=== PATIENT | female | born 1935 | race Caucasian/White ===

== ENCOUNTER 2019-01-25 13:33 | Inpatient (IN) | payer MEDICARE, OTHER ==
[~2019-01-25] VITALS: Ht 170.2 cm; Wt 72.6 kg
[~2019-01-25 13:33] MED LIST: DIGOXIN125 MCG PO; LEVAQUIN250 MG PO; LISINOPRIL10 MG PO; METOPROLOL SUCC50 MG PO; METOPROLOL TART50 MG PO; WARFARIN SODIU2.5 MG PO
--- OUTSIDE RECORDS SUMMARY | 2019-01-25 13:38 | XMS REPORT ---
Author Author [facility] Address Unknown Phone Unavailable Care Team Providers Care Cloth Shrinking Tester Name Role Phone Unavailable Unavailable Payers Payer Name Policy Type Policy Number Effective Date Expiration Date Problems This patient has no known problems. Allergies, Adverse Reactions, Alerts Allergy Name Allergy Type Status Severity Reaction(s) Onset Date Inactive Date Treating Clinician Comments latex DA Active U 2014-11-07 00:00:00 Penicillins DA Active U 2012-01-02 00:00:00 morphine DA Active U 2012-01-02 00:00:00 codeine DA Active U 2012-01-02 00:00:00 etodolac DA Active MO 2012-01-02 00:00:00 Medications This patient has no known medications. Results Test Description Test Time Test Comments Text Results Atomic Results Result Comments - XR RIBS UNI W/CXR 3+V RT 2019-01-22 22:14:00 FAX: Mary Mohan [phone] [place]: St: [facility] FAX: Belkys Martinez MD [phone] Name: ROBERTA NUNEZ [facility] : 1935 Age/S: 83/F [address] Unit #: [id number] Loc: MARIEL Desai [address] Phys: Belkys Martinez MD Acct: [id number] Dis Date: Status: REG ER PHONE #: [phone] Exam Date: 01/22/20192211 FAX #: [phone] Reason: pain, trauma EXAMS: CPT CODE: [id number] XR RIBS UNI W/CXR 3+V RT 05200 REASON FOR EXAM: pain, trauma EXAM ORDER DATE: 01/22/2019 8:14 PM Ordering M.DCurtis: Belkys Martinez MD PROCEDURE: - XR RIBS UNI W/CXR 3+V RT FINDINGS: 5 views of the frontal view of the chest and right ribs were obtained. The osseous structures are unremarkable in size and shape. No evidence of pneumothorax or hemothorax. No evidence of displaced rib fracture. IMPRESSION: Unremarkable right ribs at 2214 Reported and signed by: Isma Murphy M.D. CC: Mary Garrison MD; Belkys Martinez MD Technologist: JENNY ALMANZA RT; Cruz Castanon RT(R Trnscrd Date/Time/By: 01/22/2019 (2213) : By: JoseVTL Orig Print D/T: S: 01/22/2019 (5811) PAGE 1 Signed Report PROTHROMBIN TIME 2019-01-22 21:05:00 PROTHROMBIN TIME PATIENT (test code=PTP) 19.6 seconds 9.0-14.0 INTERNATIONAL NORMAL RATIO (test code=INR) 1.7 0.8-1.2 The therapeutic range for oral anticoagulant therapy formost indications is an international normalized ratio (INR)of between 2.0 and 3.0. The recommended therapeutic INRrange for various clinical situations is listed below: Clinical Situation INR range Pulmonary e mbolism treatment (2.0-3.0)Venous thrombosis treatmentVenous thrombosis prophylaxis (high risk surgery)Prevention of systemic embolism from: Acute myocardial infarction Valvular heart disease Atrial fibrillation Mechanical prosthetic heart valves (2.5-3.5) IS PATIENT ON ANTICOAGULANTS? YLIST ANTICOAGULANTS COUMADINTHROMBOPLASTIN TIME [id number] 21:05:00* Test Item Value Reference Range Comments THROMBOPLASTIN TIME PARTIAL (test code=PTT) 32.9 seconds 25.0-36.5 IS PATIENT ON ANTICOAGULANTS? YLIST ANTICOAGULANTS COUMADINCOMPREHENSIVE METABOLIC [id number] 20:43:00* Test Item Value Reference Range Comments SODIUM (test code=NA) 137 mmol/L 136-145 POTASSIUM (test code=K) 3.7 mmol/L 3.5-5.1 CHLORIDE (test code=CL) 103.0 mmol/L 98-107 CARBON DIOXIDE (test code=CO2) 25.0 mmol/L 21-32 ANION GAP (test code=GAP) 12.7 10-20 GLUCOSE (test code=GLU) 128 mg/dL 74-106 BLOOD UREA NITROGEN (test code=BUN) 14 mg/dL 7-18 GLOMERULAR FILTRATION RATE (test code=GFR) > 60 mL/min >=60 Estimated GFR by using Modified MDRD formula.Chronic kidney disease is defined as either kidney damageor GFR <60 mL/min/1.73 m2 for >3 months. CREATININE (test code=CREAT) 0.70 mg/dL 0.55-1.02 Note change in reference range due to change in reagent. BUN/CREATININE RATIO (test code=BUN/CREA) 20.0 10-20 TOTAL PROTEIN (test code=PROT) 8.0 gram/dL 6.4-8.2 ALBUMIN (test code=ALB) 4.0 g/dL 3.4-5.0 GLOBULIN (test code=GLOB) 4.0 gram/dL 2.7-4.2 ALBUMIN/GLOBULIN RATIO (test code=A/G) 1.0 0.75-1.50 CALCIUM (test code=CA) 9.2 mg/dL 8.5-10.1 BILIRUBIN TOTAL (test code=BILT) 0.50 mg/dL 0.0-1.0 SGOT/AST (test code=AST) 30 IUnit/L 15-37 SGPT/ALT (test code=ALT) 31 IUnit/L 12-78 ALKALINE PHOSPHATASE TOTAL (test code=ALKP) 68 IUnit/L 45-117 Note change in reference range due to change in reagent. COMPREHENSIVE METABOLIC [id number] 20:42:00* Test Item Value Reference Range Comments SODIUM (test code=NA) 137 mmol/L 136-145 POTASSIUM (test code=K) 3.7 mmol/L 3.5-5.1 CHLORIDE (test code=CL) 103.0 mmol/L 98-107 CARBON DIOXIDE (test code=CO2) mmol/L 21-32 ANION GAP (test code=GAP) 10-20 GLUCOSE (test code=GLU) mg/dL 74-106 BLOOD UREA NITROGEN (test code=BUN) mg/dL 7-18 GLOMERULAR FILTRATION RATE (test code=GFR) mL/min >=60 CREATININE (test code=CREAT) mg/dL 0.55-1.02 BUN/CREATININE RATIO (test code=BUN/CREA) 10-20 TOTAL PROTEIN (test code=PROT) gram/dL 6.4-8.2 ALBUMIN (test code=ALB) g/dL 3.4-5.0 GLOBULIN (test code=GLOB) gram/dL 2.7-4.2 ALBUMIN/GLOBULIN RATIO (test code=A/G) 0.75-1.50 CALCIUM (test code=CA) mg/dL 8.5-10.1 BILIRUBIN TOTAL (test code=BILT) mg/dL 0.0-1.0 SGOT/AST (test code=AST) IUnit/L 15-37 SGPT/ALT (test code=ALT) IUnit/L 12-78 ALKALINE PHOSPHATASE TOTAL (test code=ALKP) IUnit/L 45-117 CBC W/AUTO [id number] 20:40:00* Test Item Value Reference Range Comments WHITE BLOOD CELL (test code=WBC) 15.7 K/mm3 4.5-12.5 RED BLOOD CELL (test code=RBC) 4.95 mill/mm3 3.7-5.2 HEMOGLOBIN (test code=HGB) 15.3 gram/dL 11.5-15.5 HEMATOCRIT (test code=HCT) 46.8 % 36.0-46.0 MEAN CELL VOLUME (test code=MCV) 94.5 fL 80-98 MEAN CELL HGB (test code=MCH) 30.9 picogram 27.0-33.0 MEAN CELL HGB CONCETRATION (test code=MCHC) 32.7 gram/dL 33.0-36.0 RED CELL DISTRIBUTION WIDTH (test code=RDW) 12.3 % 11.6-16.2 RED CELL DISTRIBUTION WIDTH SD (test code=RDW-SD) 42.5 fL 37.0-51.0 PLATELET COUNT (test code=PLT) 275 K/mm3 150-450 MEAN PLATELET VOLUME (test code=MPV) 9.5 fL 6.7-11.0 NEUTROPHIL % (test code=NT%) 78.4 % 39.0-69.0 IMMATURE GRANULOCYTE % (test code=IG%) 1.6 % 0.0-5.0 LYMPHOCYTE % (test code=LY%) 13.8 % 25.0-55.0 MONOCYTE % (test code=MO%) 5.4 % 0.0-10.0 EOSINOPHIL % (test code=EO%) 0.2 % 0.0-5.0 BASOPHIL % (test code=BA%) 0.6 % 0.0-1.0 NUCLEATED RBC % (test code=NRBC%) 0.0 % 0-0 NEUTROPHIL # (test code=NT#) 12.32 K/mm3 1.8-7.7 IMMATURE GRANULOCYTE # (test code=IG#) 0.25 x10 3/uL 0-0.03 LYMPHOCYTE # (test code=LY#) 2.17 K/mm3 1.0-5.0 MONOCYTE # (test code=MO#) 0.84 K/mm3 0-0.8 EOSINOPHIL # (test code=EO#) 0.03 K/mm3 0.0-0.5 BASOPHIL # (test code=BA#) 0.09 K/mm3 0.0-0.2 NUCLEATED RBC # (test code=NRBC#) 0.00 K/mm3 0.0-0.1 MANUAL DIFF REQUIRED (test code=MDIFF) NO CBC W/AUTO [id number] 20:31:00* Test Item Value Reference Range Comments WHITE BLOOD CELL (test code=WBC) K/mm3 4.5-12.5 RED BLOOD CELL (test code=RBC) mill/mm3 3.7-5.2 HEMOGLOBIN (test code=HGB) 15.3 gram/dL 11.5-15.5 HEMATOCRIT (test code=HCT) % 36.0-46.0 MEAN CELL VOLUME (test code=MCV) fL 80-98 MEAN CELL HGB (test code=MCH) picogram 27.0-33.0 MEAN CELL HGB CONCETRATION (test code=MCHC) gram/dL 33.0-36.0 RED CELL DISTRIBUTION WIDTH (test code=RDW) % 11.6-16.2 RED CELL DISTRIBUTION WIDTH SD (test code=RDW-SD) fL 37.0-51.0 PLATELET COUNT (test code=PLT) K/mm3 150-450 MEAN PLATELET VOLUME (test code=MPV) fL 6.7-11.0 NEUTROPHIL % (test code=NT%) % 39.0-69.0 IMMATURE GRANULOCYTE % (test code=IG%) % 0.0-5.0 LYMPHOCYTE % (test code=LY%) % 25.0-55.0 MONOCYTE % (test code=MO%) % 0.0-10.0 EOSINOPHIL % (test code=EO%) % 0.0-5.0 BASOPHIL % (test code=BA%) % 0.0-1.0 NEUTROPHIL # (test code=NT#) K/mm3 1.8-7.7 LYMPHOCYTE # (test code=LY#) K/mm3 1.0-5.0 MONOCYTE # (test code=MO#) K/mm3 0-0.8 EOSINOPHIL # (test code=EO#) K/mm3 0.0-0.5 BASOPHIL # (test code=BA#) K/mm3 0.0-0.2
[2019-01-25 14:36] LABS: ALANINE AMINOTRANSFERASE 19 IU/L (0-55); ALBUMIN 3.5 g/dL (3.5-5.0); ALBUMIN/GLOBULIN RATIO 0.9 (0.8-2.0); ALKALINE PHOSPHATASE 59 IU/L (40-150); ANION GAP 15.6 mmol/L (8-16); BLOOD UREA NITROGEN 20 mg/dL (7-26); BUN/CREATININE RATIO 25 (6-25); CALCIUM 9.9 mg/dL (8.4-10.2); CARBON DIOXIDE 22 mmol/L (22-29); CHLORIDE 103 mmol/L (98-107); EST GLOMERULAR FILTRATION RATE > 60 ML/MIN (60-); GLUCOSE 154 mg/dL (74-118); POTASSIUM 3.6 mmol/L (3.5-5.1); SODIUM 137 mmol/L (136-145)
[2019-01-25 14:37] LABS: BASOPHILS # (AUTO) 0.1 (0.0-0.1); BASOPHILS % 0.7 % (0.0-1.0); EOSINOPHILS # (AUTO) 0.1 (0.0-0.4); EOSINOPHILS % 0.8 % (0.0-6.0); HEMOGLOBIN 15.2 g/dL (12.0-16.0); LYMPHOCYTES # (AUTO) 2.9 (1.0-3.2); LYMPHOCYTES % 22.2 % (18.0-39.1); MEAN CORPUSCULAR HEMOGLOBIN 31.5 pg (28-32); MEAN CORPUSCULAR HGB CONC 34.5 g/dL (31-35); MEAN CORPUSCULAR VOLUME 91.1 fL (81-99); MONOCYTES # (AUTO) 1.1 (0.2-0.8); MONOCYTES % 8.2 % (4.4-11.3); NEUTROPHILS # (AUTO) 8.7 (2.1-6.9); NEUTROPHILS % 67.2 % (38.7-80.0); PLATELET COUNT 273 x10e3/uL (140-360); RED BLOOD COUNT 4.83 x10e6/uL (3.6-5.1); RED CELL DISTRIBUTION WIDTH 12.4 % (11.7-14.4)
--- NOTE | 2019-01-25 14:44 | NUR ---
SPOUSE/FAMILY UNSURE OF PT'S HOME MEDS
[2019-01-25] MEDS ORDERED: LACTULOSE SYRUP 20 GM/30 ML UDC PO PRN (15:00)
[2019-01-25] MEDS ORDERED: ONDANSETRON HCL INJ 2MG/ML 2ML 2 MG/ML VIAL IV PRN (15:00)
[2019-01-25] MEDS ORDERED: ENALAPRILAT IV INJ 1.25 MG/ML VIAL IV PRN (15:00)
--- NOTE | 2019-01-25 15:04 | NUR ---
Patient arrived from ER via stretcher. Alert to self only, family at the bedside. Patient was a total slide transfer to the bed with staff assistance. She guards right side and attempted to hit staff as she was being transferred. Spouse attempted to redirect. Patient was safely transferred and patient re-oriented to new surrounding. Diaper changed and patient repositioned. Bed in lowest position, locked and call irizarry within reach.
--- NOTE | 2019-01-25 15:21 | Diagnostic Imaging Report ---
Exam: Right RIBS with chest radiograph History: Fall last week, rib fracture Comparison: None. Findings: The lungs are well-inflated and without focal consolidation. Blunting of the right lateral costophrenic sulcus with adjacent linear opacity. Biapical pleural-parenchymal scar. No pneumothorax. Tortuous thoracic aorta with atherosclerotic calcification. Left subclavian approach implantable cardiac device body projects over the left axilla. Chest wall projects over the right ventricle. Acute, mildly displaced fracture of the posterior right eighth and probably ninth ribs. Acute, mildly displaced fractures of the lateral fifth through 10th ribs. Impression: Acute mildly displaced fractures of the right lateral fifth through 10th ribs with a segmental eighth rib fracture as above. Basal-lateral right lower thoracic opacity likely reflects a combination of small hemothorax and adjacent atelectasis. No pneumothorax. Signed by: Dr. Yg Juarez M.D. on 01/25/2019 3:18 PM
[2019-01-25 15:30] VITALS: BP 170/88
[2019-01-25 16:25] VITALS: BP 179/94
[2019-01-25] MEDS: CLONIDINE HCL 0.1 MG TAB PO PRN (17:06)
[2019-01-25] MEDS: FAMOTIDINE 20 MG TAB PO SCH (17:06)
--- NOTE | 2019-01-25 17:45 | NUR ---
Dr. Garrison rounding per MD INR can be checked tomorrow.
[2019-01-25] MEDS: METOPROLOL TARTRATE 50 MG TAB PO SCH (18:39)
--- NOTE | 2019-01-25 19:12 | NUR ---
Report received and walking rounds/bedside complete. Pt resting in bed and in no apparent distress. Family at bedside. Pt on room air and no tele. Pt has purewick cath to suction in place. Pt spouse to stay overnight. All safety measures ensured, bed alarm on, and pt call irizarry near.
[2019-01-25 20:00] VITALS: BP 164/73
[2019-01-25] MEDS: ACETAMINOPHEN 325 MG TAB PO PRN (20:52)
[2019-01-26] VITALS: BP 160/92
[2019-01-26 00:18] LABS: BILIRUBIN,URINE NEGATIVE (NEGATIVE); CLARITY,URINE HAZY (CLEAR); COLOR,URINE YELLOW (YELLOW); KETONES,URINE 1+ (NEGATIVE); LEUKOCYTE ESTERASE ,URINE TRACE (NEGATIVE); NITRITE,URINE NEGATIVE (NEGATIVE); PROTEIN,URINE DIPSTICK 1+ (NEGATIVE); URINE UROBILINOGEN 0.2 mg/dL (0.2 - 1)
[2019-01-26 00:19] LABS: BACTERIA,URINE MANY /HPF; EPITHELIAL CELLS,URINE FEW /LPF; MUCUS,URINE FEW (RARE); TRANSITIONAL EPI CELLS,URINE FEW; WBC,URINE (MAN) >50 /HPF (0-5)
--- NOTE | 2019-01-26 00:25 | Consultation ---
DATE OF CONSULTATION: 01/25/2019 Cardiology Consultation REASON FOR CONSULTATION: Atrial fibrillation, fall and fractured ribs. HISTORY OF PRESENT ILLNESS: This delightful 83-year-old lady, who was known with atrial fibrillation, prior TIA, Alzheimer's, and hypertension. The patient totally taking care of by family. She has excellent family support. The patient sustained a fall last Friday. She went to the ER. X-ray showed fractured ribs. Since that time, the patient really is obtunded, worsening condition, unable to move or to do any activity. Today, her condition worsened, so she was brought by her to the emergency room and admitted for further management. The patient's main problem is her atrial fibrillation, but more importantly, Alzheimer. She is very forgetful. Her is providing excellent 24-hour care. Unfortunately with that fall and fractures and painful right chest, the patient is unable to do any activity. She started deteriorating and her was very worried. He brought her to the emergency room. HOME MEDICATIONS: Metoprolol 50 mg p.o. twice a day, warfarin 2 mg a day, and Tylenol p.r.n. ALLERGIES: ZOCOR, CAUSING MUSCLE ACHE; PENICILLIN, RASH; MORPHINE, CONFUSION; CODEINE, CONFUSION; ALL STATINS CAUSING MUSCLE ACHES. PAST MEDICAL HISTORY: 1. Mild coronary artery disease documented by cardiac cath many years ago. 2. Atrial fibrillation. 3. Pacemaker on November 25, 2011. 4. Right greater saphenous vein ablation in 2014. 5. Left carotid bruit. 6. TIA. 7. Hypercholesteremia. 8. Elevated fasting blood sugar. 9. Fever. 10. Dementia. 11. Past history of peptic ulcer disease. 12. Back surgery. 13. Cholecystectomy. 14. Kidney surgery. 15. Partial hysterectomy. FAMILY HISTORY: Mother at age 72 with myocardial infarction. Father at age 76 with CVA. Few of her siblings with CVA or with kidney problem and coronary artery disease. SOCIAL HISTORY: She is . She is a nonsmoker. She is nonalcohol drinker. She has excellent family support at home. REVIEW OF SYSTEMS: GENERAL: The patient is unable to move, failure to thrive for the last few days. HEENT: Unremarkable. PULMONARY AND CARDIAC: Easy fatigability and shortness of breath on exertion. GI: Poor appetite and debility. : Incontinence. MUSCULOSKELETAL: Severe right chest wall pain. NEUROLOGIC: The patient is very forgetful. PHYSICAL EXAMINATION: GENERAL: Thin, told lady with height of 5 feet 9 inches, weight of 159 pounds. VITAL SIGNS: Blood pressure 170/80, heart rate of 110 per minute, irregularly irregular rate of atrial fibrillation, respiratory rate of 20. HEENT: Pupils are equal and reactive. NECK: No elevation of jugular venous pulsation. CHEST: Very tender chest wall. Decreased lung expansion. HEART: Irregularly regular rate of atrial fibrillation. Pacemaker is noted in place. Normal first and second heart sounds. A soft ejection systolic murmur. ABDOMEN: Soft. EXTREMITIES: No cyanosis. No clubbing. NEUROLOGIC: The patient is very forgetful, but she is able to move her extremities. IMPRESSION AND PLAN: 1. Alzheimer's. 2. Fall and right rib fractures. 3. Atrial fibrillation. 4. Pacemaker. 5. Hypertension. 6. Hypercholesteremia. Cardiac montelongo recommendation to be, I would resume the patient's beta-mike. We will check her INR before resuming her anticoagulation. Supportive care to be done. Physical Therapy to evaluate. horse stud manager to help. Care was discussed and explained to the patient and her family. Their questions are answered. MD OBED Roe/JANETT /[id number]
[2019-01-26 04:00] VITALS: BP 132/99
--- NOTE | 2019-01-26 04:30 | NUR ---
Attempted to assist PCT with vitals and bed bath but pt became very agitated and combative. Pt yelled and repeatedly told us to " leave her alone and get out" Pt spouse assisted in calming pt down. Temp not obtained and bed bath refused. Left pt room so that pt could calm down.
[2019-01-26 06:02] LABS: INR 1.94; PROTHROMBIN TIME 22.8 seconds (11.9-14.5)
[2019-01-26 06:10] LABS: ALANINE AMINOTRANSFERASE 17 IU/L (0-55); ALBUMIN/GLOBULIN RATIO 0.8 (0.8-2.0); ALKALINE PHOSPHATASE 53 IU/L (40-150); ANION GAP 13.6 mmol/L (8-16); BLOOD UREA NITROGEN 20 mg/dL (7-26); BUN/CREATININE RATIO 29 (6-25); CALCIUM 9.4 mg/dL (8.4-10.2); CARBON DIOXIDE 25 mmol/L (22-29); CHLORIDE 100 mmol/L (98-107); CHOL/HDL RATIO 3.8 (3.0-3.6); CHOLESTEROL 169 MD/DL (0-199); CREATININE, SERUM 0.69 mg/dL (0.57-1.11); EST GLOMERULAR FILTRATION RATE > 60 ML/MIN (60-); GLUCOSE 110 mg/dL (74-118); HDL CHOLESTEROL 44 MG/DL (40-60); LDL CHOLESTEROL 103 MG/DL (60-130); POTASSIUM 3.6 mmol/L (3.5-5.1); SODIUM 135 mmol/L (136-145); TRIGLYCERIDES 108 MG/DL (0-149)
--- NOTE | 2019-01-26 06:10 | NUR ---
departmental secretary tried multiple times to reach consult with no success. Tried to reach Dr. Fountain for consult, no response and no voicemail available. Will inform day shift RN as well.
[2019-01-26 06:11] LABS: BASOPHILS # (AUTO) 0.1 (0.0-0.1); BASOPHILS % 0.8 % (0.0-1.0); EOSINOPHILS # (AUTO) 0.1 (0.0-0.4); EOSINOPHILS % 0.9 % (0.0-6.0); HEMATOCRIT 39.8 % (34.2-44.1); LYMPHOCYTES # (AUTO) 2.6 (1.0-3.2); LYMPHOCYTES % 24.8 % (18.0-39.1); MEAN CORPUSCULAR HEMOGLOBIN 31.8 pg (28-32); MEAN CORPUSCULAR HGB CONC 34.9 g/dL (31-35); MEAN CORPUSCULAR VOLUME 91.1 fL (81-99); MONOCYTES % 9.3 % (4.4-11.3); NEUTROPHILS # (AUTO) 6.7 (2.1-6.9); NEUTROPHILS % 63.5 % (38.7-80.0); PLATELET COUNT 247 x10e3/uL (140-360); RED BLOOD COUNT 4.37 x10e6/uL (3.6-5.1); RED CELL DISTRIBUTION WIDTH 12.2 % (11.7-14.4)
[2019-01-26 06:32] LABS: THYROID STIMULATING HORMONE 2.051 uIU/mL (0.350-4.940)
[2019-01-26 06:35] LABS: HEMOGLOBIN 13.9 g/dL (12.0-16.0)
[2019-01-26 07:00] VITALS: BP 133/94
--- NOTE | 2019-01-26 07:15 | NUR ---
Walking rounds/bedside report complete. Pt resting in bed and in no distress. All safety measures ensured.
[2019-01-26] MEDS: ACETAMINOPHEN 325 MG TAB PO PRN ×2 (07:30→12:51)
[2019-01-26] MEDS: FAMOTIDINE 20 MG TAB PO SCH ×2 (08:20→16:30)
[2019-01-26] MEDS: METOPROLOL TARTRATE 50 MG TAB PO SCH ×2 (08:20→16:31)
[2019-01-26] MEDS ORDERED: METOPROLOL TARTRATE 50 MG TAB PO SCH (09:00)
[2019-01-26] MEDS ORDERED: WARFARIN SOD 2.5 MG TAB PO SCH (09:00)
[2019-01-26] MEDS: CEFTRIAXONE SOD 2 GM/NS 100 ML 100 ML IV SCH (10:20)
--- NOTE | 2019-01-26 11:03 | NUR ---
SPOKE WITH SON WHO SIGNED IMM FILED IN CHART AND LEFT COPY FOR AT BEDSIDE WITH ANY QUESTIONS. ADVISED ABOUT DIFFERENT FACILITIES AROUND HIS NEIGHBORHOOD AND THE ONE THE DR RECOMMENDS. LET KNOW THE PT WILL NEED TO BE IN HOSPITAL FOR THE 3 MIDNIGHT RULE, HE STATES HE WILL DISCUSS WITH HIS DAD AND GET BACK TO ME WITH CHOICE FOR SNF.
[2019-01-26 11:30] VITALS: BP 147/89
[2019-01-26] MEDS ORDERED: ONDANSETRON HCL 4 MG ORAL DISINTEGRATING TAB PO PRN (12:15)
--- NOTE | 2019-01-26 15:08 | Diagnostic Imaging Report ---
Examination: Single AP view of the chest. COMPARISON: Rib radiographs 01/25/2019 INDICATION: Rib fractures DISCUSSION: Patient is rotated substantially to the left. Lungs are well-inflated. Small right pleural effusion. No new consolidation. Unchanged cardiomediastinal contour when accounting for differences in patient positioning. Tortuosity and atherosclerotic calcification of the thoracic aorta. Unchanged left subclavian implantable cardiac device. Multiple right-sided rib fractures are grossly unchanged and seen to better advantage on dedicated rib radiographs. IMPRESSION: Multiple right-sided rib fractures, grossly unchanged and seen to better advantage on comparison rib radiographs 01/25/2019. Trace right pleural effusion/hemothorax unchanged. Signed by: Dr. Yg Juarez M.D. on 01/26/2019 3:04 PM
[2019-01-26 15:35] VITALS: BP 139/87
--- NOTE | 2019-01-26 15:38 | History and Physical ---
HISTORY OF PRESENT ILLNESS: Ceci Hsu is an 83-year-old female with past medical history positive for dementia, chronic atrial fibrillation, hypertension. The patient had a fall at home. She has broken ribs. She had also right hemothorax. She was found to have UTI, came to the emergency room for admission. REVIEW OF SYSTEMS: The patient is extremely confused, she cannot give me any information. PAST MEDICAL HISTORY: Positive for hypertension, chronic atrial fibrillation, dementia. SOCIAL HISTORY: She does not smoke. She does not drink. She lives with her . PHYSICAL EXAMINATION: VITAL SIGNS: Blood pressure 132/99, temperature 95.7, heart rate is 110 per minute, respiratory rate is 20 per minute, oxygen saturation 93%. HEART: Showed irregularly irregular heart rate. Normal S1, S2 sound. LUNGS: Clear bilaterally. ABDOMEN: Soft. EXTREMITIES: Show no evidence of cyanosis, edema, or trauma. LABORATORY DATA: BMP; sodium 136, potassium 3.6, chloride 100, CO2 of 25, BUN 20, creatinine 0.69, glucose 110. CBC; white blood count 10.4, hemoglobin 13.9, hematocrit 39.8, platelet count 247,000. PT 22.8, INR 1.84. AST 20, ALT 17, total bilirubin 1.1, alkaline phosphatase 53. FINAL IMPRESSION: 1. Urinary tract infection. 2. Status post fall. 3. Right rib fractures. 4. Right hemothorax secondary to right rib fractures. 5. Chronic atrial fibrillation. 6. Hypertension. 7. Dementia. PLAN OF TREATMENT: We are going to continue Tylenol 650 mg q.4 hours as needed, Pepcid 20 mg twice a day, Benadryl 25 mg q.6 hours as needed, lactulose 20 g twice a day, metoprolol 50 mg twice a day, enalapril at 0.625 IV q.6 hours as needed for hypertension, Zofran 4 mg IV q.4 hours as needed, and clonidine 0.1 mg three times a day. If okay with Dr. Garrison, we are going to discontinue the Coumadin and start the aspirin because this patient has a very high risk of falling and high chance I think Coumadin is contraindicated in this case and baby aspirin should be a safer alternative. I discussed the case with the son at the bedside, he agrees with that. We are going to order physical and occupational therapy. The patient most likely will need to go to a halfway facility. The patient has difficulty walking, falling at home, she cannot follow any commands, so most likely she is going to need a halfway facility. We will consult Dr. Calderon for physical therapy also. MD GISELLE Gibson/JANETT /[id number]
[2019-01-26] MEDS: DICLOFENAC EPOLAMINE 1.3% PATCH TP SCH (16:31)
[2019-01-26] MEDS ORDERED: WARFARIN SOD 2 MG TAB PO SCH (17:00)
--- NOTE | 2019-01-26 17:43 | NUR ---
attempted to clean up patient, patient refuses to turn. attempted to reorient and re-educate the patient on the importance of turning and cleaning up after bowel movements. family verbalized understanding concerning patient care.
--- NOTE | 2019-01-26 19:05 | NUR ---
rounded with night court magistrate nurse, patient aware of change and in no distress. call irizarry within reach and bed in lowest position.
--- NOTE | 2019-01-26 19:10 | NUR ---
Report received and walking rounds/beside report complete. Pt resting in bed and in no apparent distress. Daughter in law at bedside. All safety measures ensured, bed alarm on, and pt call irizarry near. Pt is confused and can be easily agitated and combative.
[2019-01-26 20:00] VITALS: BP 169/89
[2019-01-26] MEDS: CLONIDINE HCL 0.1 MG TAB PO PRN (20:51)
--- NOTE | 2019-01-26 21:19 | Consultation ---
DATE OF CONSULTATION: 01/26/2019 Pulmonary Medicine Consult. REFERRING PHYSICIAN: Dr. Carney. REASON FOR REFERRAL: Rib fractures. HISTORY OF PRESENT ILLNESS: Ms. Hsu is a pleasant 83-year-old female with rib fractures. The patient with dementia. At baseline, she is not able to fully dress herself. She is able to fully feed herself. The patient forgetful, every day had episodes of agitation. The patient usually does not walk, but when she walks, she gets fits. However, when she gets angry, she will sometimes try to walk on her own. Reportedly yesterday, the patient tried to get up for whatever reason, and she had a fall. On chest x-ray, the patient with multiple right-sided rib fractures last Friday. The patient had worsening mental status and did not recover as usual her mentation, so she was elected for hospitalization. She is currently at the [facility] observation emery at this time. Urinalysis with greater than 50 white blood cells. PAST MEDICAL HISTORY: Mild coronary artery disease documented by heart catheterization many years ago, atrial fibrillation, pacemaker 2011, TIA, hypercholesterolemia, Alzheimer's dementia, peptic ulcer disease in the past, history of back surgery, cholecystectomy, kidney surgery, and partial hysterectomy. MEDICATIONS: Medication list reviewed per the chart record. Medicines at home include warfarin. ALLERGIES: PENICILLIN, PROPRANOLOL, SIMVASTATIN, CODEINE, MORPHINE, AND STATINS. SOCIAL HISTORY: No smoking. No drinking. No drugs. The patient formerly worked at [employer]. She has not been driving for three years. She lives at home with her , who is 85 years old and is her main unloader. FAMILY HISTORY: Noncontributory. REVIEW OF SYSTEMS: Cannot get review of systems, as the patient is agitated and confused. OBJECTIVE: VITAL SIGNS: Afebrile, vital signs noted and reviewed per the chart record. GENERAL: In no acute distress. Alert and slightly anxious, agitated, oppositional. She cannot notice the pain on a routine conversation. HEENT: Normocephalic and atraumatic. NECK: Supple. Throat midline. LUNGS: Bilateral air entry, limited evaluation due to the patient nonparticipation. CARDIOVASCULAR: S1, S2. No murmurs, rubs, or gallops. ABDOMINAL EXAM: Soft and nontender. EXTREMITIES: No clubbing. No cyanosis. There is no edema. INTEGUMENT: No rash. No purpura. For chest wall, we were unable to fully evaluate as the patient not allowing. LABORATORY DATA: 3.6 potassium, 20 BUN, 0.7 creatinine. 10 white count, 37 hematocrit. INR is 1.94. Chest x-ray with only small blunting right costophrenic angle. Rib series had shown the fractures. No full review of chest standard imaging was noted as only rib x-rays reviewed by this time. IMPRESSION AND PLAN: 1. Multiple rib fractures, traumatic. 2. Status post fall. 3. Warfarin coagulopathy. 4. Dementia, Alzheimer's type. 5. Delirium with agitation. 6. Atrial fibrillation. 7. History of pacemaker line. 8. History of transient ischemic attack. 9. Hyperlipidemia. 10. History of peptic ulcer disease. 11. Urinary tract infection, acute. Serial evaluation of neuropsychiatric status is recommended. Also, we will evaluate her respiratory status, but for now the patient is breathing well with little inhibition at least when she is left in bed still. Per nursing, she has a lot of pain on mobilization. The patient will have repeat CBC done. Furthermore, the patient will have repeat x-rays to assess for bleeding. We will drain any significant pleural effusion/hemothoraces. Continue treatment for her infection including urinary tract infection, which has been diagnosed. Thank you very much, Dr. Carney for allowing me a chance to participate in the care of Ms. Hsu. Do not hesitate to contact me if I can help in any way. MD NANCY Morris/JANETT /[id number]
--- NOTE | 2019-01-26 21:40 | NUR ---
Report given to GREGROIO Castro. Pt transferred to room 112.
--- NOTE | 2019-01-26 21:46 | NUR ---
Received the pt from obs via hospital bed.family member at bed side.[id number] monitor the pt.
[2019-01-26] MEDS: DIPHENHYDRAMINE HCL INJ 50 MG/ML VIAL IV PRN (22:59)
--- NOTE | 2019-01-26 23:53 | NUR ---
PATIENT REFUSED VITALS
[2019-01-27] VITALS (8 sets, daily range): BP systolic 0–173; BP diastolic 79–93
--- NOTE | 2019-01-27 04:41 | NUR ---
Patient was combative and screams during diaper changed. Refused vitals signs.
--- NOTE | 2019-01-27 06:07 | Diagnostic Imaging Report ---
Examination: Single AP view of the chest. COMPARISON: Portable chest 01/26/2018, rib series 01/25/2019 INDICATION: AMS, dementia, multiple rib fractures IMPRESSION: 1. Lines and Tubes: Stable single lead left upper chest cardiac device with the distal tip projecting in the right ventricle. 2. Lungs are well-inflated. Stable mild blunting of the right costophrenic angle, likely reflecting small pleural effusion or hemothorax secondary to multiple right-sided rib fractures. No new consolidation. 3. Stable enlargement of the cardiac silhouette. Mild central pulmonary venous congestion. 4. Multiple right-sided rib fractures, which are better visualized on dedicated rib series dated 01/25/2019 Signed by: Dr. Andrew Mcgee M.D. on 01/27/2019 6:04 AM
[2019-01-27 06:09] LABS: BASOPHILS # (AUTO) 0.1 (0.0-0.1); BASOPHILS % 0.9 % (0.0-1.0); EOSINOPHILS # (AUTO) 0.1 (0.0-0.4); EOSINOPHILS % 0.6 % (0.0-6.0); HEMATOCRIT 40.5 % (34.2-44.1); HEMOGLOBIN 13.8 g/dL (12.0-16.0); LYMPHOCYTES # (AUTO) 1.9 (1.0-3.2); LYMPHOCYTES % 18.5 % (18.0-39.1); MEAN CORPUSCULAR HEMOGLOBIN 31.5 pg (28-32); MEAN CORPUSCULAR HGB CONC 34.1 g/dL (31-35); MEAN CORPUSCULAR VOLUME 92.5 fL (81-99); MONOCYTES % 9.4 % (4.4-11.3); NEUTROPHILS # (AUTO) 7.1 (2.1-6.9); NEUTROPHILS % 69.9 % (38.7-80.0); PLATELET COUNT 265 x10e3/uL (140-360); RED BLOOD COUNT 4.38 x10e6/uL (3.6-5.1); RED CELL DISTRIBUTION WIDTH 12.2 % (11.7-14.4)
[2019-01-27 06:26] LABS: INR 1.94; PROTHROMBIN TIME 22.8 seconds (11.9-14.5)
[2019-01-27] MEDS: METOPROLOL TARTRATE 50 MG TAB PO SCH ×2 (09:18→18:20)
[2019-01-27] MEDS: ASPIRIN 81 MG ENTERIC COATED PO SCH (09:18)
[2019-01-27] MEDS: FAMOTIDINE 20 MG TAB PO SCH ×2 (09:18→18:20)
[2019-01-27] MEDS: CEFTRIAXONE SOD 2 GM/NS 100 ML 100 ML IV SCH (09:47)
[2019-01-27] MEDS: DICLOFENAC EPOLAMINE 1.3% PATCH TP SCH ×2 (12:03→18:20)
--- NOTE | 2019-01-27 12:49 | NUR ---
EDUCATED ABOUT IMM, SIGNED, FILED IN CHART, WITH COPY LEFT WITH FAMILY AT BEDSIDE.
[2019-01-27] MEDS ORDERED: ACETAMINOPHEN 325 MG SUPP PR PRN (14:15)
--- NOTE | 2019-01-27 14:19 | NUR ---
SPOKE WITH FAMILY ABOUT DIFFERENT HOSPICE OPTIONS SIGNED CHOICE FOR [facility] TO GET EDUCATION. WILL UPDATE WITH PROGRESS.
--- NOTE | 2019-01-27 14:53 | Progress Note ---
DATE: 01/27/2019 Pulmonary Medicine Progress Note SUBJECTIVE: Ms. Hsu was seen and examined at bedside. She continues to have further intermittent confusion. The patient withdrawals in periods of more conversation and lucidity. The other time, she is withdrawn and sometimes even agitated. The patient did not eat too much today. She has intermittent pain on mobilization. Chest x-ray showed benjamin instability grossly. REVIEW OF SYSTEMS: Limited as she is altered. OBJECTIVE: VITAL SIGNS: Afebrile, vital signs stable, reviewed and noted per the chart record. GENERAL: In no acute distress, alert and calm. HEENT: Normocephalic, atraumatic. NECK: Supple. Throat midline. LUNGS: Bilateral air entry, limited evaluation due to limited effort. CARDIOVASCULAR: S1 and S2. No murmurs, rubs, or gallops. ABDOMEN: Soft, nontender. EXTREMITIES: No clubbing, no cyanosis. There is no edema. INTEGUMENT: No rash or purpura. LABS: Hemoglobin was stable at 13.8. INR stable 1.94. IMPRESSION: 1. Status post fall, multiple right-sided rib fractures. 2. Small right-sided pleural effusion, stable. Likely small hemothorax. 3. Warfarin coagulopathy. 4. Urinary tract infection with confusion. PLAN: Continue antibiotics per others. The patient will have repeat monitoring of the INR tomorrow to ensure there is no toxicity range level. The patient will have continued pain management assistance for the rib fractures. If she has trouble mobilizing, we will consider adding lidocaine patch. The patient will have repeat chest x-ray tomorrow and if there is any increase in size of the effusion, we will get a CAT scan to see there is a sizable retained hemothorax. We will follow along closely. MD NANCY Morris/JANETT /[id number]
[2019-01-27] MEDS: ACETAMINOPHEN 325 MG TAB PO PRN (15:27)
--- NOTE | 2019-01-27 17:09 | Consultation ---
DATE OF CONSULTATION: 01/27/2019 I would like to thank Dr. Carney for asking to see Ms. Hsu in consultation. REASON FOR CONSULTATION: 1. Status post fall with right rib fractures. 2. Severely debilitated state. 3. Severe Alzheimer's dementia. 4. Atrial fibrillation. HISTORY: An 83-year-old female with history of atrial fibrillation, significant Alzheimer's dementia and hypertension, who got up and fell fracturing her right-sided ribs. The patient was sleepy and has been sleepy ever since, has had decline in function, was admitted to the hospital. and son are at the bedside. Now, she was notified of this consult. PAST MEDICAL HISTORY: Includes mild coronary artery disease. Atrial fibrillation, severe Alzheimer's dementia, TIA, hyperlipidemia, knee arthritis right worse than left, and history of peptic ulcer disease. PAST SURGICAL HISTORY: Partial hysterectomy, Achilles surgery, cholecystectomy, and back surgery. SOCIAL HISTORY: Lives with her spouse in a one-story home, could not take a shower and was severely demented. Habits, nonsmoker and nondrinker. FAMILY HISTORY: Positive for myocardial infarction in her mother. Father had CVA. She had few brothers and sisters with kidney disease and CVA. LABORATORY STUDIES: White cell count 12.9, hemoglobin 15.2, hematocrit 44.0, and platelets 273. Sodium is 137, potassium 3.6, BUN of 20, and creatinine 0.8. She had rib x-ray, which showed acute mildly displaced fracture of the right lateral 5th through 10th ribs, segmental 8th rib fracture, a basilar right lower thoracic opacity likely reflects a combination of small hemothorax and some atelectasis. ALLERGIES: STATINS, CODEINE, MORPHINE, PENICILLIN, PROPRANOLOL, SIMVASTATIN. PHYSICAL EXAMINATION: GENERAL: Very limited, sleepy, but easily arousable. She was able to follow some commands, but very weak, very tired. EYES: Gaze is conjugate. She is not oriented. NECK: No JVD. HEART: Regular. LUNGS: Diminished breath sounds. ABDOMEN: Nondistended, nontender. EXTREMITIES: Limited range of motion upper extremities. She can squeeze with her fingers, flex her elbows, can really raise her arms and legs, really did move it a whole lot. She is able to follow some commands. No increased tone to the upper extremities with range of motion. She did have some right knee pain with trying to do some range of motion. Minimal edema to the legs. IMPRESSION: 1. Debilitated state secondary to fall with the right rib fractures. 2. Alzheimer's dementia. 3. Hypertension. 4. History of atrial fibrillation. PLAN: The patient is nowhere near inpatient rehab candidate given her dementia and her pain. Her family is really looking toward hospice at this point. They say there is no quality of life. She is not doing much even before this, now she is much worse when she is in pain. She has Lidoderm patches to her ribs. At this point, I agree with going to skilled unit would be very difficult for her and they are looking at hospice. Discussed with spouse at length. We will discuss with Dr. Carney. Thank you once again for allowing me to participate in the care of this patient. Александр Calderon DO RPL/MODL /[id number]
--- NOTE | 2019-01-27 18:14 | Discharge Summary ---
HISTORY: An 83-year-old female, who came here with difficulty walking. She had a hemothorax. She had a chronic atrial fibrillation, very severe advanced dementia. The family is considering hospice due to her prior wishes due to her severe dementia. She at this point in time, she is refusing even to eat. PHYSICAL EXAMINATION: VITAL SIGNS: Blood pressure 141/79, temperature 37.4, heart rate 106 per minute, respiratory rate 18 per minute, oxygen saturation 96%. HEART: Showed irregularly irregular heart rate. Normal S1, S2 sound. LUNGS: Clear bilaterally. ABDOMEN: Soft. EXTREMITIES: Show no evidence of cyanosis or hematoma. LABORATORY DATA: On the BMP; sodium 135, potassium 3.6, chloride 100, CO2 25, BUN 20, creatinine 0.69, glucose 110. On CBC, white blood count 10.1, hemoglobin 13.8, hematocrit 40.5, platelet count 265,000. PT 22.8, INR 1.94, AST 20, ALT 17, total bilirubin 1.1, alkaline phosphatase 53. FINAL IMPRESSION: 1. Urinary tract infection. 2. Status post fall. 3. Hemothorax. 4. Right knee fracture. 5. Chronic atrial fibrillation. 6. Severe dementia. PLAN OF TREATMENT: Continue on Rocephin 2 g IV daily, Tylenol 650 mg q.4 hours as needed, Pepcid 20 mg twice a day, Benadryl 25 mg q.6 hours as needed, metoprolol 50 mg twice a day, Coumadin 2 mg once a day, which we are going to stop, lactulose 20 g twice a day, aspirin 81 mg daily, Haldol 2 mg IV q.6 hours as needed, Enalaprilat 0.625 mg IV q.6 hours as needed for hypertension, diclofenac patch twice a day, clonidine 0.1 mg three times a day, Zofran 4 mg q.4 hours as needed. As I said hospice is being evaluating the patient. Family will decide if they want to go home with hospice or nursing with hospice. Case has been discussed with family for 45 minutes. MD GISELLE Gibson/JANETT /[id number]
--- NOTE | 2019-01-27 20:15 | NUR ---
Patient's family requested an order for IV Tylenol, stated patient won't take the pill form. Dr. Carney was notified and a telephone order was received.
[2019-01-27] MEDS ORDERED: ACETAMINOPHEN 1000 MG/100 ML IV PRN (20:30)
[2019-01-27] MEDS ORDERED: SODIUM CHLORIDE 0.9% 50ML 50 ML ONE (21:02)
[2019-01-27] MEDS: ACETAMINOPHEN 1000 MG/100 ML 100 ML IV PRN (21:17)
[2019-01-27] MEDS: DIPHENHYDRAMINE HCL INJ 50 MG/ML VIAL IV PRN (21:51)
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
[2019-01-28] MEDS: HALOPERIDOL LACTATE 5 MG/ML VIAL IV PRN ×3 (01:53→22:11)
[2019-01-28 05:20] VITALS: BP 173/93
--- NOTE | 2019-01-28 06:07 | Diagnostic Imaging Report ---
Examination: Single AP view of the chest. COMPARISON: Portable chest 01/27/2019 INDICATION: Effusion IMPRESSION: 1. Lines and Tubes: Stable left upper chest single lead cardiac device 2. Lungs are well-inflated. No interval change in blunting of the right costophrenic angle consistent with small pleural effusion or hemothorax secondary to multiple right-sided rib fractures 3. Stable enlargement of the cardiac silhouette stable central pulmonary venous congestion. 4. Multiple right-sided rib fractures, stable Signed by: Dr. Andrew Mcgee M.D. on 01/28/2019 6:04 AM
[2019-01-28 06:25] LABS: BASOPHILS # (AUTO) 0.1 (0.0-0.1); BASOPHILS % 0.8 % (0.0-1.0); EOSINOPHILS # (AUTO) 0.2 (0.0-0.4); EOSINOPHILS % 1.5 % (0.0-6.0); HEMOGLOBIN 13.6 g/dL (12.0-16.0); LYMPHOCYTES # (AUTO) 2.9 (1.0-3.2); LYMPHOCYTES % 25.6 % (18.0-39.1); MEAN CORPUSCULAR HEMOGLOBIN 32.2 pg (28-32); MEAN CORPUSCULAR HGB CONC 34.9 g/dL (31-35); MEAN CORPUSCULAR VOLUME 92.2 fL (81-99); MONOCYTES # (AUTO) 1.1 (0.2-0.8); MONOCYTES % 9.4 % (4.4-11.3); NEUTROPHILS % 61.9 % (38.7-80.0); PLATELET COUNT 293 x10e3/uL (140-360); RED BLOOD COUNT 4.23 x10e6/uL (3.6-5.1); RED CELL DISTRIBUTION WIDTH 12.4 % (11.7-14.4)
[2019-01-28 08:15] VITALS: BP 143/89
[2019-01-28 08:30] VITALS: BP 143/89
[2019-01-28 09:01] LABS: INR 2.11; PROTHROMBIN TIME 24.3 seconds (11.9-14.5)
[2019-01-28] MEDS: ASPIRIN 81 MG ENTERIC COATED PO SCH (09:15)
[2019-01-28] MEDS: METOPROLOL TARTRATE 50 MG TAB PO SCH ×2 (09:15→16:48)
[2019-01-28] MEDS: FAMOTIDINE 20 MG TAB PO SCH ×2 (09:15→16:48)
[2019-01-28] MEDS: CEFTRIAXONE SOD 2 GM/NS 100 ML 100 ML IV SCH (09:15)
[2019-01-28] MEDS: DICLOFENAC EPOLAMINE 1.3% PATCH TP SCH ×2 (09:15→16:37)
--- NOTE | 2019-01-28 10:41 | NUR ---
FAMILY IS REQUESTING TO SPEAK WITH ANOTHER HOSPICE COMPANY CONTACTED JEANE ARTHUR, SHE WILL COME SEE PT TODAY AND THEN FAMILY NOTIFIED THERE IS A DISCHARGE ORDER. PT FAMILY STATES WANTS TO RETURN HOME BUT WILL MAKE DECISION TODAY ON WHICH COMPANY THEY WILL CHOOSE.
--- NOTE | 2019-01-28 11:49 | Discharge Summary ---
HOSPITAL COURSE: The patient is an 83-year-old female, who has a past medical history positive for dementia. The patient came here because of difficulty walking. She is unable to eat. She was found to have UTI, started on IV antibiotics. She had several falls with rib fracture and right hemothorax which is very mild. Family decided for hospice, so hospice will be done at home. They interviewed several agencies and the patient apparently is going home today. PHYSICAL EXAMINATION: HEART: Showed regular rhythm. Normal S1, S2 sounds. LUNGS: Clear bilaterally. ABDOMEN: Soft. VITAL SIGNS: Blood pressure 143/89, temperature 96.4, heart rate is 78 per minute, respiratory rate 18 per minute, and oxygen saturation 94%. FINAL IMPRESSION: 1. Urinary tract infection. 2. Severe dementia with lack of appetite and deconditioning. 3. Chronic atrial fibrillation. 4. Rib fracture with small hemothorax. PLAN OF TREATMENT: The patient is going to be discharged home with hospice of their own choice. Prognosis of the patient is very poor. The patient is family members have made decision based on her prior wishes since her mental condition is getting deteriorating every day and as I said the patient is going home with hospice as per family wishes. MD GISELLE Gibson/JANETT /[id number]
[2019-01-28 12:36] VITALS: BP 103/57
[2019-01-28 13:03] VITALS: BP 168/95
--- NOTE | 2019-01-28 14:03 | NUR ---
PT REQUESTING TO STAY ANOTHER DAY TO REARRANGE THINGS AT HOME. SPOKE WITH DR. ULLOA STATES OK FOR PT TO STAY UNTIL TOMORROW.
--- NOTE | 2019-01-28 15:04 | Progress Note ---
DATE: 01/28/2019 Pulmonary Medicine Progress Note SUBJECTIVE: Ms. Hsu was seen and examined at bedside. She continues to have some pain to the right chest especially on mobilization. The patient ate a little bit better today. Her mentation and conversation are better today. REVIEW OF SYSTEMS: No headaches. No bleeding. OBJECTIVE: VITAL SIGNS: Afebrile. Vital signs stable, reviewed per the chart record. GENERAL: In no acute distress. Alert and calm. HEENT: Normocephalic atraumatic. NECK: Supple. Throat midline. LUNGS: Bilateral air entry, limited air entry due to decreased effort. CARDIOVASCULAR: S1, S2. No murmurs, rubs, or gallops. ABDOMEN: Soft and nontender. EXTREMITIES: No clubbing, no cyanosis, no edema. INTEGUMENT: No rash or purpura. LABORATORY DATA: A 3.6 potassium, 20 BUN, 0.7 creatinine. An 11 white count and 39 hematocrit. IMPRESSION: 1. Multiple right-sided rib fractures. 2. Status post fall. 3. Dementia. 4. Weakness. PLAN: Continue pain therapy locally. Continue to mobilize the patient. Family is discussing disposition. Chest x-ray was done today and shows gross debility. Would not recommend early intervention for this small effusion. Follow up closely. MD NANCY Morris/MODL /[id number]
[2019-01-28 16:42] VITALS: BP 186/96
[2019-01-28] MEDS: ACETAMINOPHEN 1000 MG/100 ML 100 ML IV PRN (18:50)
[2019-01-28] MEDS: DIPHENHYDRAMINE HCL INJ 50 MG/ML VIAL IV PRN (20:45)
[2019-01-29 00:11] VITALS: BP 186/96
[2019-01-29] MEDS: ACETAMINOPHEN 325 MG TAB PO PRN (03:00)
[2019-01-29 04:00] VITALS: BP 174/80
[2019-01-29] MEDS: FAMOTIDINE 20 MG TAB PO SCH (07:30)
[2019-01-29] MEDS: METOPROLOL TARTRATE 50 MG TAB PO SCH (09:00)
--- NOTE | 2019-01-29 09:05 | NUR ---
FAMILY CHOSE [facility] AND WILL BE RETURNING HOME TODAY. AMBULANCE WILL [facility]ACH[facility] OPERATOR PT AT 10AM, OOH DNR ON CHART FOR TRANSPORT
[2019-01-29] MEDS: ASPIRIN 81 MG ENTERIC COATED PO SCH (09:23)
[2019-01-29] MEDS: DICLOFENAC EPOLAMINE 1.3% PATCH TP SCH (09:24)
--- NOTE | 2019-01-29 09:53 | NUR ---
Patient alert and responsive, in bed and repositioned for comfort after completion of incontinence care, no resp distress, medicated for pain and tolerated morning meds, IV line removed and discharge documentation provided to family as patient will be discharged home on hospice.
--- NOTE | 2019-01-29 10:00 | NUR ---
Patient refused Vital signs this morning
--- NOTE | 2019-01-29 10:32 | NUR ---
Patient tolerated GI soft diet, denies any N/V and soreness, call light within reach and will monitor.
--- NOTE | 2019-01-29 13:00 | Progress Note ---
DATE: SUBJECTIVE: Ms. Hsu is supposed to go home today on hospice. She is 83-year-old. She has history of dementia. She is bed ridden. She was admitted with UTI and started on IV antibiotics. She had a fall with rib fractures and right hemothorax. Family had decided for home with hospice. PHYSICAL EXAMINATION: GENERAL: Today, she is awake, she is alert. VITAL SIGNS: Temperature is 98.3, blood pressure 174/80. HEART: Irregular. LUNGS: Poor inspiratory effort. ABDOMEN: Distended and soft. LABORATORY DATA: On the blood work; white count 11.35, hemoglobin 13.6, hematocrit 39. Potassium 3.6, creatinine 0.69. Urine shows more than 50 white blood cells. Urine culture shows E coli. DISCHARGE DIAGNOSES: 1. Urinary tract infection with E coli. 2. Status post fall. 3. Severe dementia. 4. Chronic atrial fibrillation. 5. Multiple right-sided rib fractures. 6. Weakness. PLAN: The plan at the present time is I just talked with her and her son, the patient is going to be discharged home on hospice. She has severe dementia. Her overall prognosis is poor and she keeps apparently deteriorating day by day. This is her family wish. The patient is going to be discharged home. They are to call me or bring her back to the emergency room if any recurrent problem. MD MARCOS Giraldo/JANETT /[id number]
== END 2019-01-29 10:21 | disposition hospice, home (50) | DRG 187 ==
LOC: ER 13:36 → ERHOLD 14:56 → IMCU 15:04 → OBSVTOIN 01-26 09:16 → MED/SURG 01-26 21:20
PROVIDERS: ADMIT Internal Medicine; ATTEND Internal Medicine
DX: J94.2 Hemothorax (principal); S82.001A Unspecified fracture of right patella, initial encounter for closed fracture; W19.XXXA Unspecified fall, initial encounter; I48.2 Chronic atrial fibrillation; Z79.01 Long term (current) use of anticoagulants; G30.9 Alzheimer's disease, unspecified; F02.80 Dementia in other diseases classified elsewhere, unspecified severity, without behavioral disturbance, psychotic disturbance, mood disturbance, and anxiety
CPT/HCPCS: 36415; 71045; 71101; 80053; 80061; 81001; 84443; 85025; 85610; 87086; 87186; 93005; 97139; 99284; G0378; J0696; J1200; J1630; J2405